=== PATIENT | female | born 1950 | race Caucasian/White ===

== ENCOUNTER 2019-10-04 13:19 | Inpatient (IN) ==
[2019-10-04 13:59] LABS: Basophils % 0.1 %; Hematocrit 32.2 % (35.3-44.9); Hemoglobin 10.6 g/dL (11.5-15.4); Immature Granulocytes % 0.7 % (0-4); Lymphocytes # 0.7 K/mcL (0.6-4.6); Lymphocytes % 3.7 %; Mean Corpuscular HGB Conc 32.9 g/dL (31.6-35.5); Mean Corpuscular Hemoglobin 31.2 pg (28.0-33.3); Mean Corpuscular Volume 94.7 fL (83.0-100.0); Monocytes # 1.6 K/mcL (0.0-1.3); Monocytes % 8.2 %; Neutrophils # 17.1 K/mcL (1.6-8.9); Platelet Count 291 K/mcL (140-400); Red Cell Distribution Width 13.8 % (11.5-14.5); Segmented Neutrophils % 87.3 %; White Blood Count 19.6 K/mcL (4.3-11.1)
[2019-10-04 14:20] LABS: Potassium 3.7 mEq/L (3.5-5.1)
[2019-10-04 15:12] LABS: Bilirubin,Urine Negative (Negative); Blood,Urine Large (Negative); Clarity,Urine Cloudy (Clear); Color,Urine Yellow (Yellow); Glucose,Urine (UA) 100 mg/dL (Normal); Ketones,Urine Negative (Negative); Leukocyte Esterase,Urine Small (Negative); Nitrite,Urine Negative (Negative); PH,Urine 5.5 pH Units (5.0-8.0); Protein,Urine >=300 mg/dL (Neg-Trace); Urobilinogen,Urine Normal (Normal)
[2019-10-04 15:14] LABS: Bacteria,Urine Moderate per hpf (None-Few); Squamous Epithelial Cell,Urine Many per lpf (None-Few); WBC,Urine 30-50 per hpf (0-3)
[2019-10-04 15:57] LABS: Amorphous Sediment,Urine Few per hpf (Few); Granular Casts,Urine Few per lpf (None Seen); Hyaline Casts,Urine None Seen per lpf (None-Few)
[2019-10-04] MEDS ORDERED: cefTRIAXone 2,000 MG in Water for inj. (sterile) 20 ML IVP ONE (16:26)
[2019-10-04] MEDS ORDERED: Naloxone 0.4 MG/ML INJ IVP PRN (17:04)
[2019-10-04] MEDS ORDERED: Ondansetron 4 MG/2 ML VIAL IVP PRN (17:04)
[2019-10-04] MEDS ORDERED: *HR* Dextrose 50 % in Water (Syg) 50 ML SYRINGE IVP PRN (17:06)
[2019-10-04] MEDS ORDERED: Dextrose Gel 15 GM/37.5 ML TUBE PO PRN ×2 (17:06)
[2019-10-04] MEDS ORDERED: D5% in Water 1,000 ML IVC PRN (17:06)
[2019-10-04] MEDS ORDERED: 0.9 % Sodium Chloride 1,000 ML IVC SCH (17:15)
[2019-10-04 17:29] LABS: Albumin 3.9 g/dL (3.5-5.7); Albumin/Globulin Ratio 1.2 (1.1-2.2); Bilirubin,Direct 0.2 mg/dL (0.0-0.2); Bilirubin,Indirect 0.3 mg/dL (0.0-1.0); Bilirubin,Total 0.5 mg/dL (0.3-1.0); Globulin 3.3 g/dL (2.4-3.5); Total Protein 7.2 g/dL (6.4-8.9)
[2019-10-04] MEDS ORDERED: Gabapentin 100 MG CAPSULE PO SCH (21:00)
[2019-10-04] MEDS: Insulin DETEMIR 100 UNIT/ML X5UNITS SQ SCH (21:44)
[2019-10-04] MEDS ORDERED: *HR* HYDROmorphone 2 MG TABLET PO PRN (23:42)
[2019-10-04] MEDS: *HR* HYDROmorphone 2 MG TABLET PO SCH ×2 (23:46→23:47)
[2019-10-04] MEDS: *HR* Heparin 5,000 UNIT/ML VIAL SQ SCH (23:56)
[2019-10-05] MEDS: *HR* Heparin 5,000 UNIT/ML VIAL SQ SCH ×2 (05:43→16:37)
[2019-10-05 07:29] LABS: Eosinophils % 0.1 %; Hematocrit 27.2 % (35.3-44.9); Immature Granulocytes % 0.7 % (0-4); Lymphocytes % 6.2 %; Mean Corpuscular HGB Conc 33.1 g/dL (31.6-35.5); Mean Corpuscular Hemoglobin 31.4 pg (28.0-33.3); Mean Corpuscular Volume 94.8 fL (83.0-100.0); Mean Platelet Volume 10.2 fL (9.4-12.4); Monocytes % 10.6 %; Platelet Count 244 K/mcL (140-400); Red Blood Count 2.87 M/mcL (3.82-4.97); Red Cell Distribution Width 13.9 % (11.5-14.5); Segmented Neutrophils % 82.3 %; White Blood Count 14.3 K/mcL (4.3-11.1)
[2019-10-05 07:30] LABS: Basophils % 0.1 %; Lymphocytes # 0.9 K/mcL (0.6-4.6); Monocytes # 1.5 K/mcL (0.0-1.3); Neutrophils # 11.8 K/mcL (1.6-8.9)
[2019-10-05 07:51] LABS: Calcium 8.3 mg/dL (8.6-10.3); Magnesium 1.4 mg/dL (1.6-2.6); Phosphorous 2.8 mg/dL (2.7-4.5); Potassium 3.6 mEq/L (3.5-5.1)
[2019-10-05 08:24] LABS: Estimated Average Glucose 146 mg/dl
[2019-10-05] MEDS: Gabapentin 100 MG CAPSULE PO SCH ×2 (09:37→20:38)
[2019-10-05] MEDS: cefTRIAXone 1,000 MG in Water for inj. (sterile) 10 ML IVP SCH (09:37)
[2019-10-05] MEDS: Insulin LISPRO 300 UNITS/3 ML VIAL SQ SCH ×3 (09:39→16:33)
[2019-10-05] MEDS: *HR* Methadone 5 MG TABLET PO SCH ×3 (10:38→20:38)
[2019-10-05] MEDS ORDERED: Ringers Solution, Lactated 1,000 ML IVC SCH (12:15)
[2019-10-05] MEDS: carvediloL 6.25 MG TABLET PO SCH (16:37)
[2019-10-05] MEDS: *HR* HYDROmorphone 4 MG TABLET PO PRN ×2 (16:42→23:00)
[2019-10-05] MEDS: rOPINIRole 0.25 MG TABLET PO SCH (20:38)
[2019-10-05] MEDS: Insulin DETEMIR 100 UNIT/ML X5UNITS SQ SCH (20:40)
[2019-10-06 03:48] LABS: Albumin 3.1 g/dL (3.5-5.7); Bilirubin,Total 0.5 mg/dL (0.3-1.0); Calcium 8.3 mg/dL (8.6-10.3); Complement C3 174 mg/dL (87-200); Potassium 3.7 mEq/L (3.5-5.1); Total Protein 6.1 g/dL (6.4-8.9)
[2019-10-06 04:09] LABS: Ferritin 427 ng/mL (10-120); Iron < 10 mcg/dL (50-170); Transferrin 134 mg/dL (203-362)
[2019-10-06] MEDS ORDERED: Albuterol 2.5 MG/3 ML NEBULIZER IH ONE (04:39)
[2019-10-06] MEDS: *HR* Heparin 5,000 UNIT/ML VIAL SQ SCH ×2 (04:58→16:45)
[2019-10-06 05:44] LABS: Basophils % 0.1 %; Eosinophils # 0.1 K/mcL (0.0-0.6); Eosinophils % 0.8 %; Hematocrit 26.1 % (35.3-44.9); Hemoglobin 8.5 g/dL (11.5-15.4); Immature Granulocytes % 0.5 % (0-4); Lymphocytes # 1.1 K/mcL (0.6-4.6); Lymphocytes % 8.3 %; Mean Corpuscular HGB Conc 32.6 g/dL (31.6-35.5); Mean Corpuscular Hemoglobin 30.8 pg (28.0-33.3); Mean Platelet Volume 10.2 fL (9.4-12.4); Monocytes # 1.2 K/mcL (0.0-1.3); Monocytes % 8.8 %; Neutrophils # 10.7 K/mcL (1.6-8.9); Platelet Count 274 K/mcL (140-400); Red Blood Count 2.76 M/mcL (3.82-4.97); Segmented Neutrophils % 81.5 %; White Blood Count 13.2 K/mcL (4.3-11.1)
[2019-10-06 05:45] LABS: Mean Corpuscular Volume 94.6 fL (83.0-100.0)
[2019-10-06] MEDS: Insulin LISPRO 300 UNITS/3 ML VIAL SQ SCH ×3 (08:06→16:45)
[2019-10-06] MEDS: *HR* Methadone 5 MG TABLET PO SCH ×3 (08:14→21:25)
[2019-10-06] MEDS: Gabapentin 100 MG CAPSULE PO SCH ×2 (08:14→21:25)
[2019-10-06] MEDS: cefTRIAXone 1,000 MG in Water for inj. (sterile) 10 ML IVP SCH (08:15)
[2019-10-06] MEDS: carvediloL 6.25 MG TABLET PO SCH ×2 (08:15→16:45)
[2019-10-06] MEDS ORDERED: Ergocalciferol (VIT D2) 50,000 UNIT (1.25MG) CAP PO SCH (09:00)
[2019-10-06] MEDS: Iron Sucrose Complex 200 MG in 0.9 % Sodium Chloride 100 ML IVPB SCH (10:13)
[2019-10-06] MEDS: rOPINIRole 0.25 MG TABLET PO SCH (21:25)
[2019-10-06] MEDS: Insulin DETEMIR 100 UNIT/ML X5UNITS SQ SCH (21:26)
[2019-10-07] MEDS: *HR* HYDROmorphone 4 MG TABLET PO PRN (00:47)
[2019-10-07] MEDS: *HR* Heparin 5,000 UNIT/ML VIAL SQ SCH ×2 (05:31→17:23)
[2019-10-07 07:19] LABS: Hematocrit 26.2 % (35.3-44.9); Mean Corpuscular HGB Conc 30.5 g/dL (31.6-35.5); Mean Corpuscular Hemoglobin 30.5 pg (28.0-33.3); Mean Platelet Volume 10.3 fL (9.4-12.4); Platelet Count 295 K/mcL (140-400); Red Blood Count 2.62 M/mcL (3.82-4.97); White Blood Count 10.5 K/mcL (4.3-11.1)
[2019-10-07 07:41] LABS: Albumin 3.2 g/dL (3.5-5.7); Bilirubin,Direct 0.2 mg/dL (0.0-0.2); Bilirubin,Indirect 0.1 mg/dL (0.0-1.0); Bilirubin,Total 0.3 mg/dL (0.3-1.0); Globulin 3.2 g/dL (2.4-3.5); Total Protein 6.4 g/dL (6.4-8.9)
[2019-10-07 07:43] LABS: Calcium 8.8 mg/dL (8.6-10.3); Potassium 3.7 mEq/L (3.5-5.1)
[2019-10-07] MEDS: Insulin LISPRO 300 UNITS/3 ML VIAL SQ SCH ×3 (08:55→17:26)
[2019-10-07] MEDS: carvediloL 6.25 MG TABLET PO SCH ×2 (08:56→17:23)
[2019-10-07] MEDS: Gabapentin 100 MG CAPSULE PO SCH ×2 (08:57→22:32)
[2019-10-07] MEDS: *HR* Methadone 5 MG TABLET PO SCH ×3 (08:57→22:32)
[2019-10-07] MEDS: cefTRIAXone 1,000 MG in Water for inj. (sterile) 10 ML IVP SCH (08:58)
[2019-10-07] MEDS: Iron Sucrose Complex 200 MG in 0.9 % Sodium Chloride 100 ML IVPB SCH (09:12)
[2019-10-07 10:57] LABS: Uric Acid 6.8 mg/dL (2.3-7.6)
[2019-10-07 19:14] LABS: Thyroid Stimulating Hormone 1.409 mcIU/mL (0.340-5.600)
[2019-10-07 19:25] LABS: Folate 3.3 ng/mL (3.0-16.0)
[2019-10-07] MEDS: rOPINIRole 0.25 MG TABLET PO SCH (22:32)
[2019-10-07] MEDS: Insulin DETEMIR 100 UNIT/ML X5UNITS SQ SCH (22:32)
[2019-10-08] MEDS: *HR* Heparin 5,000 UNIT/ML VIAL SQ SCH ×2 (04:55→18:40)
[2019-10-08 06:02] LABS: Hematocrit 25.7 % (35.3-44.9); Hemoglobin 8.2 g/dL (11.5-15.4); Mean Corpuscular HGB Conc 31.9 g/dL (31.6-35.5); Mean Corpuscular Hemoglobin 30.9 pg (28.0-33.3); Mean Platelet Volume 10.1 fL (9.4-12.4); Platelet Count 326 K/mcL (140-400); Red Blood Count 2.65 M/mcL (3.82-4.97); Red Cell Distribution Width 14.1 % (11.5-14.5); White Blood Count 9.7 K/mcL (4.3-11.1)
[2019-10-08 06:23] LABS: Albumin 3.1 g/dL (3.5-5.7); Bilirubin,Direct 0.2 mg/dL (0.0-0.2); Bilirubin,Indirect 0.1 mg/dL (0.0-1.0); Bilirubin,Total 0.3 mg/dL (0.3-1.0); Globulin 3.1 g/dL (2.4-3.5); Total Protein 6.2 g/dL (6.4-8.9)
[2019-10-08 06:27] LABS: Calcium 8.8 mg/dL (8.6-10.3); Potassium 3.8 mEq/L (3.5-5.1)
[2019-10-08 07:20] LABS: Hepatitis B Surface Antigen Nonreactive (Nonreactive)
[2019-10-08] MEDS: Insulin LISPRO 300 UNITS/3 ML VIAL SQ SCH ×3 (07:46→16:44)
[2019-10-08 07:49] LABS: Hepatitis B Core IgM Nonreactive (Nonreactive)
[2019-10-08 07:50] LABS: Hepatitis C Virus Antibody Nonreactive (Nonreactive)
[2019-10-08 07:51] LABS: Hepatitis A Antibody IgM Nonreactive (Nonreactive)
[2019-10-08 09:44] LABS: ANA IgG by ELISA NONE DETECTED (None Detected)
[2019-10-08] MEDS: cefTRIAXone 1,000 MG in Water for inj. (sterile) 10 ML IVP SCH (10:41)
[2019-10-08] MEDS: Cyanocobalamin (B-12) 1,000 MCG/ML VIAL SQ SCH (10:41)
[2019-10-08] MEDS: *HR* Methadone 5 MG TABLET PO SCH ×3 (10:42→20:38)
[2019-10-08] MEDS: Gabapentin 100 MG CAPSULE PO SCH ×2 (10:42→20:38)
[2019-10-08] MEDS: Iron Sucrose Complex 200 MG in 0.9 % Sodium Chloride 100 ML IVPB SCH (10:42)
[2019-10-08] MEDS: carvediloL 6.25 MG TABLET PO SCH ×2 (10:42→18:40)
[2019-10-08] MEDS: Insulin DETEMIR 100 UNIT/ML X5UNITS SQ SCH (20:38)
[2019-10-08] MEDS: rOPINIRole 0.25 MG TABLET PO SCH (20:38)
[2019-10-08 22:07] LABS: Protein/Creatinine Ratio,Urine 1.63 mg/mg (0.00-0.20)
[2019-10-09] MEDS: *HR* Heparin 5,000 UNIT/ML VIAL SQ SCH ×2 (05:52→17:16)
[2019-10-09] MEDS: Insulin LISPRO 300 UNITS/3 ML VIAL SQ SCH ×3 (08:47→17:15)
[2019-10-09] MEDS: Gabapentin 100 MG CAPSULE PO SCH ×2 (08:52→21:37)
[2019-10-09] MEDS: *HR* Methadone 5 MG TABLET PO SCH ×3 (08:53→21:36)
[2019-10-09] MEDS: cefTRIAXone 1,000 MG in Water for inj. (sterile) 10 ML IVP SCH (08:54)
[2019-10-09] MEDS: carvediloL 6.25 MG TABLET PO SCH ×2 (08:54→17:16)
[2019-10-09] MEDS: Iron Sucrose Complex 200 MG in 0.9 % Sodium Chloride 100 ML IVPB SCH (08:55)
[2019-10-09] MEDS: Cyanocobalamin (B-12) 1,000 MCG/ML VIAL SQ SCH (08:58)
[2019-10-09] MEDS: rOPINIRole 0.25 MG TABLET PO SCH (21:36)
[2019-10-09] MEDS: Insulin DETEMIR 100 UNIT/ML X5UNITS SQ SCH (21:37)
[2019-10-10] MEDS: *HR* Heparin 5,000 UNIT/ML VIAL SQ SCH ×2 (05:04→17:16)
[2019-10-10 06:51] LABS: Kappa Qnt Free Light Chains 3.94 mg/dL (0.33-1.94); Lambda Qnt Free Light Chains 2.54 mg/dL (0.57-2.63)
[2019-10-10 06:54] LABS: Hematocrit 27.3 % (35.3-44.9); Hemoglobin 8.5 g/dL (11.5-15.4); Mean Corpuscular HGB Conc 31.1 g/dL (31.6-35.5); Mean Corpuscular Hemoglobin 30.6 pg (28.0-33.3); Mean Corpuscular Volume 98.2 fL (83.0-100.0); Mean Platelet Volume 9.6 fL (9.4-12.4); Platelet Count 409 K/mcL (140-400); Red Blood Count 2.78 M/mcL (3.82-4.97); Red Cell Distribution Width 14.2 % (11.5-14.5); White Blood Count 9.9 K/mcL (4.3-11.1)
[2019-10-10 07:06] LABS: Calcium 8.8 mg/dL (8.6-10.3); Potassium 4.1 mEq/L (3.5-5.1)
[2019-10-10] MEDS: Iron Sucrose Complex 200 MG in 0.9 % Sodium Chloride 100 ML IVPB SCH (08:02)
[2019-10-10] MEDS: carvediloL 6.25 MG TABLET PO SCH ×2 (08:03→17:11)
[2019-10-10] MEDS: Gabapentin 100 MG CAPSULE PO SCH (08:03)
[2019-10-10] MEDS: Insulin LISPRO 300 UNITS/3 ML VIAL SQ SCH ×3 (08:04→17:11)
[2019-10-10] MEDS: *HR* Methadone 5 MG TABLET PO SCH ×2 (08:04→15:36)
[2019-10-10] MEDS: Cyanocobalamin (B-12) 1,000 MCG/ML VIAL SQ SCH (08:05)
[2019-10-10] MEDS: *HR* HYDROmorphone 4 MG TABLET PO PRN ×2 (08:06→17:11)
[2019-10-10 09:20] LABS: Alpha 2 Globulin (PEP) 1.11 g/dL (0.48-1.05); Beta Globulin (PEP) 0.77 g/dL (0.48-1.10)
[2019-10-10 13:01] LABS: IFE Reflexed IFE Done; Immunoglobulin A 119 mg/dL (68-408); Immunoglobulin G 601 mg/dL (768-1632); Immunoglobulin M 65 mg/dL (35-263)
[2019-10-10 15:47] VITALS: BP 154/74
[2019-10-11 08:36] LABS: Alpha 2 Globulin (PEP) 1.26 g/dL (0.48-1.05); Beta Globulin (PEP) 0.81 g/dL (0.48-1.10)
[2019-10-11 22:22] LABS: Urine Collection Volume RANDOM mL
[2019-10-12 10:38] LABS: IFE Reflexed NOT DONE
== END 2019-10-10 18:02 | DRG 872 ==
LOC: SUATTDRO → 3BNU 13:19 → EMEROOARM 13:19 → SUATTDRO 20:46 → 3BNU 22:26 → SUATTDRO 10-06 17:04
PROVIDERS: ADMIT Internal Medicine; ATTEND Student in an Organized Health Care Education/Training Program
PROC: IRLUMPX (2019-10-07 13:00)